=== PATIENT | female | born 1965 ===

== ENCOUNTER 2017-10-07 10:25 | Day surgery (SDC) | payer MEDICAID ==
[2017-10-06 12:30] VITALS: BMI 28.3
[2017-10-07 11:10] LABS: HEMOGLOBIN 13.7 g/dL (12.0-16.0); MEAN CELL VOLUME 92.2 fl (81.0-99.0); MEAN CORPUSCULAR HGB CONC 33.6 g/dL (33.0-37.0); RBC 4.43 Mil/uL (3.80-5.20); RED CELL DISTRIBUTION WIDTH 13.5 % (11.5-14.5); WHITE BLOOD COUNT 5.6 K/uL (4.8-10.8)
[2017-10-07 11:29] LABS: PARTIAL THROMBOPLASTIN TIME 34.7 Seconds (25.6-37.1); PROTHROMBIN TIME 11.6 Seconds (9.8-13.1)
[2017-10-07] MEDS ORDERED: Midazolam 2 MG/2 ML VIAL ONE (13:13)
[2017-10-07] MEDS ORDERED: Lidocaine 1% Inj (20ml) ONE (13:19)
--- NOTE | 2017-10-07 13:35 | CP.SDSHP ---
Same Day Surgery H & P - History Proposed Procedure: Left IJ port removal Pre-Op Diagnosis: Breast ca completed of chemotherapy - Allergies Allergies: Allergies No Known Allergies Allergy (Verified 10/07/17 11:35) - Physical Exam Vital Signs: Vital Signs 10/07/17 10/07/17 10/07/17 11:25 11:30 13:21 Temperature 98.1 F 98.4 F Pulse Rate 77 77 103 H Respiratory 18 18 Rate Blood Pressure 134/88 178/94 H O2 Sat by Pulse 98 100 Oximetry Mental Status: Alert & Oriented x3 - Impression Impression: Pt with h/o breast ca s/p chemotherapy referred for port removal. Informed consent obtained Pt. Evaluated Today:Candidate for Anesthesia & Procedure: Yes (ASA 3 Malampati 3) - Date & Time Date: 10/07/17 Time: 13:00 Short Stay Discharge - Short Stay Discharge Admitting Diagnosis/Reason for Visit: BREAST CA Referrals: Marie Petty MD [Primary Care Provider] -
--- NOTE | 2017-10-07 13:37 | PCM.SURG1 ---
Surgeon's Initial Post Op Note - Surgeon's Notes Surgeon: Micah Badillo MD [employer] Consultant: NONE Type of Anesthesia: Local Pre-Operative Diagnosis: Breast cancer Operative Findings: Left IJV port Post-Operative Diagnosis: Breast cancer Operation Performed: Left IJV port removal Specimen/Specimens Removed: NONE Estimated Blood Loss: EBL {In ML}: 3 Blood Products Given: N/A Drains Used: No Drains Post-Op Condition: Fair Date of Surgery/Procedure: 10/07/17 Time of Surgery/Procedure: 13:30
[2017-10-07] MEDS ORDERED: Lactated Ringer's 1,000 ML IV ONE (13:40)
[2017-10-07 14:42] VITALS: RESP 18; TEMP 98.3
[2017-10-07 14:49] VITALS: O2SAT 97
[2017-10-07 15:33] VITALS: BP 130/77; PULSE 78
--- NOTE | 2017-10-10 14:31 | VASCULAR ---
PROCEDURE: Date of study: 10/07/2017 Procedure: 1. Removal left IJ port catheter, [id number] Medications: The patient sedated by the anesthesiologist with IV sedation along with physiologic monitoring, 1 % Lidocaine, 1 gm Ancef Fluoroscopic time: 6.6 seconds Radiation: 0.95 MGy Blood loss: 4 cc HISTORY: Breast cancer status post placement of a left IJ port and completion of chemotherapy TECHNIQUE: Following formed consent the procedure time-out, the patient placed supine on interventional table and the left neck and chest were prepped and draped in the usual sterile fashion. A fluoroscopic image showed a left IJ port catheter placement After the patient sedated by the anesthesiologist along with physiologic monitoring and the skin anesthetized with 1 percent lidocaine with epinephrine, an incision was made over the existing port scar with a 15. Scalpel The port was then removed by blunt dissection. Two sutures were cut and removed. The port and port catheter were then removed. Once hemostasis was achieved the port pocket was closed with absorbable 4 Polysorb sutures. Dressing was applied. Final chest radiograph showed removal of left IJ jacqueline catheter with no retained foreign bodies. IMPRESSION: Removal of left IJ port catheter.
== END 2017-10-07 15:30 | disposition home or self-care (01) ==
LOC: H.OPSURG 10:25
PROVIDERS: ATTEND Specialist
DX: Z45.2 Encounter for adjustment and management of vascular access device (principal); Z92.21 Personal history of antineoplastic chemotherapy; Z85.3 Personal history of malignant neoplasm of breast
CPT/HCPCS: 36415; 36590; 85027; 85610; 85730; A4310; J2250; J3010; J7120